=== PATIENT | male | born 1975 | race Caucasian/White ===

== ENCOUNTER 2016-12-28 17:08 | Emergency (ER) | payer SELFPAY ==
[~2016-12-28] VITALS: Ht 170.2 cm; Wt 67.1 kg
[2016-12-28 17:28] VITALS: BP 129/77
== END 2016-12-28 18:55 | disposition home or self-care (01) ==
LOC: ED 17:08
DX: L98.8 Other specified disorders of the skin and subcutaneous tissue (principal)